=== PATIENT | male | born 1955 | race Caucasian/White ===

== ENCOUNTER 2016-10-08 13:52 | Emergency (ER) | payer OTHER ==
[2016-10-08] MEDS ORDERED: MORPHINE 4 MG/ML SYR ONE ×2 (15:46→18:12)
[2016-10-08] MEDS ORDERED: Furosemide 100 MG/10 ML VIAL ONE (18:11)
[2016-10-08] MEDS ORDERED: Hydrocodone/APAP 10/325 MG TAB ONE (18:21)
== END 2016-10-08 20:28 | disposition home or self-care (01) ==
LOC: ER 13:52
CPT/HCPCS: 36415 ×2; 71010 ×2; 73502; 80053 ×2; 81001 ×2; 83690 ×2; 83880 ×2; 84484 ×2; 85025 ×2; 85610 ×2; 93005 ×2; 96374 ×2; 96375 ×2; 96376 ×2; 99285; J2270